=== PATIENT | male | born 1955 | race Caucasian/White ===

== ENCOUNTER 2022-11-11 08:07 | Outpatient (CLI) | payer BC, SELFPAY ==
--- NOTE | 2022-11-11 09:07 | ECG_ITS ---
Measurements Intervals [place] Rate: 54 P: 49 MO: 148 QRS: -11 QRSD: 105 T: 8 QT: 403 QTc: 382 Interpretive Statements SINUS BRADYCARDIA NONSPECIFIC T-WAVE ABNORMALITY ABNORMAL ECG NO PREVIOUS ECG AVAILABLE FOR COMPARISON Electronically Signed On 11-11-2022 10:28:59 CDT by Ravin Carey M.D.
[2022-11-11 10:10] LABS: Hemoglobin A1C 5.7 % (<5.7)
== END 2022-11-11 08:08 | disposition home or self-care (01) ==
LOC: ANHSURGERY 08:16
PROVIDERS: PCP Physician Assistant Medical; Visit Provider Urology
DX: N52.9 Male erectile dysfunction, unspecified (principal); I10 Essential (primary) hypertension; Z01.818 Encounter for other preprocedural examination; R94.31 Abnormal electrocardiogram [ECG] [EKG]
CPT/HCPCS: 36415; 83036; 87086; 93005

== ENCOUNTER 2022-12-04 00:33 | Day surgery (SDC) | payer MEDICARE, BC, SELFPAY ==
--- NOTE | 2022-11-11 08:46 | PC.NURSE ---
Report to the Outpatient Waiting Room, entrance under the green pavilion located off [facility], at time _1000 on date __12/04/22 . Planned Procedure Time: __1200 . Time changes happen often and if your time is changed the preop area will call you the afternoon before. - You and your visitor will be asked to self-screen and do not enter if you have any COVID symptoms. - A mask is optional within the hospital at this time. Patients may have clear liquids (water, carbonated beverages, clear teas, apple juice) until 3 hours prior to surgery with a maximum of 20 ounces. - No food from midnight until time of surgery - Infants may have breast milk until 4 hours before surgery, infant formula 6 hours prior to surgery. - Children will be allowed to drink immediately following surgery. If applicable, please bring a bottle or sippy cup to assist with drinking. Juice, water, soda, and popsicles are readily available. For infants on formula, please bring formula the day of surgery. Pacifiers are allowed. Take the following medications with a SIP of water the morning of surgery: ___BREZTRI INHALER DO NOT STOP ANY OF YOUR OTHER PRESCRIPTION MEDICATIONS PRIOR TO SURGERY ?EXCEPT THE FOLLOWING Medications to discontinue per physician __ALL VITAMINS AND SUPPLEMENTS 3 DAYS PRE OP.LAST DOSE 11/30/22 Please no make-up, nail liberian, hairspray, perfume, deodorant, or body powder the day of surgery. No jewelry (including any body piercings) or valuables the day of surgery, leave them at home. Please take a shower or bath the night before, or the morning of, surgery with an antibacterial soap. Wear comfortable, loose fitting clothing. Children are encouraged to wear pajamas. - Jewelry must be removed prior to entering the operating room. Rings and piercings that are not removed may be cut off. - The hospital will not accept responsibility for valuables. - Please leave all valuables, including medications, at home the day of surgery. If you are going home after surgery, a licensed garbage truck driver must drive you home. - NO public transportation without another adult if you receive anesthesia. - We recommend that an adult stay with you for 24 hours following discharge. - We also recommend that you do not drive, make important decision, drink alcoholic beverages, or take any drugs that were not prescribed by your health care provider for at least 24 hours after your discharge time. For Pediatric surgeries, we recommend two adults accompany the child home. Follow any additional instructions given to you from your surgeon. If you or anyone in your household have experienced Covid symptoms in the past week, please notify your surgeon or the nurse liaison at the phone number below for possible testing. VERBAL AND WRITTEN instructions given to ____PATIENT and asked if any additional questions and then verbalized understanding. Patient advised to call surgeon office or pre surgery nurse liaison [phone] if any additional questions.
[2022-11-11 09:07] VITALS: BP 110/77; PULSE 66; RESP 18; TEMP 36.8; O2SAT 98; BMI 26.2
[2022-12-04] VITALS (17 sets, daily range): BP systolic 101–138; BP diastolic 64–95; PULSE 58–80; RESP 12–20; TEMP 35.8–37.1; O2SAT 95–100
--- NOTE | 2022-12-04 09:26 | P.PNAN_ITS ---
Anes - Initial Pre Proc Eval Procedure: Operation Date: 12/04/22 12:00 Proposed Procedures p Insertion Inflatable Penile Prosthesis - Win Gonzales MD Date/Time: 12/04/22 09:26 Surgeon: Win Gonzales MD Pre Op Diagnosis: ED Patient Data Age: 67 Gender: M Height: 1.85 m Weight: 90.3 kg Last Vital Signs Temp 36.8 C 11/11/22 09:07 Pulse 66 11/11/22 09:07 Resp 18 11/11/22 09:07 BP 110/77 11/11/22 09:07 Pulse Ox 98 11/11/22 09:07 O2 Del Method Room Air 11/11/22 09:07 Allergies Allergy/AdvReac Type Severity Reaction Status Date / Time No Known Allergies Allergy Verified 12/04/22 18:15 Home Medications Medication Instructions Recorded Confirmed Type cetirizine 10 mg tablet (Zyrtec) 10 mg PO DAILY allergy symptoms 04/05/22 12/04/22 Rx #30 tabs tadalafil 20 mg tablet (Cialis) 20 mg PO DAILY PRN sexual activity 04/05/22 12/04/22 Rx #30 tabs alpha lipoic acid 100 mg capsule 100 mg PO DAILY 11/11/22 12/04/22 History budesonide 160 mcg-glycopyr 9 2 inh inhalation DAILY 11/11/22 12/04/22 History mcg-formot 4.8 mcg/actuation HFA inhaler (Breztri Aerosphere) cholecalciferol (vitamin D3) 125 125 mcg PO DAILY 11/11/22 12/04/22 History mcg (5,000 unit) tablet fluticasone propionate 50 2 spray intranasal BID 11/11/22 12/04/22 History mcg/actuation nasal spray,suspension (Flonase Allergy Relief) ginkgo biloba 40 mg tablet 40 mg PO DAILY 11/11/22 12/04/22 History grape seed extract 60 mg capsule 60 mg PO EVERY OTHER DAY 11/11/22 12/04/22 History lisinopril 20 mg tablet 20 mg PO HS 11/11/22 12/04/22 History magnesium 250 mg tablet 250 mg PO HS 11/11/22 12/04/22 History multivitamin 1 tablet PO DAILY 11/11/22 12/04/22 History omega-3 fatty acids 1,000 mg PO DAILY 11/11/22 12/04/22 History sulfamethoxazole 800 1 tablet PO Q12H #14 tabs 12/05/22 Rx mg-trimethoprim 160 mg tablet (Bactrim DS) Patient hx anesthesia problems: none Family hx anesthesia problems: none Results Review: All pre-operative results and documents have been reviewed as part of the pre- operative evaluation. [facility] Past Medical History Medical History Asthma HTN (hypertension) Hyperlipidemia Surgical History Surgical History No pertinent past surgical history Family History Family History Mother No problems noted. Father No problems noted. Sibling History of hip replacement Social History Social History (Updated 04/05/22 @ 09:39 by Daija Smith MA) Smoking packs per day: 1 Smoking cigarettes per day: 20.0 Years smoked: 30 Smoking pack-years: 30.00 Smoking status: Former smoker Tobacco type: cigarettes Smoking end date: 09/05/06 Alcohol intake: current Drinks per week: 7 Alcohol use details: BEER Substance use: never Substance use type: does not use Lack of Transportation: No Lack of Food: Never True Current Housing: I Have Housing Concerned About Future Housing: No Difficulty Paying Gas/Electric Bills: No Difficulty Paying for Meds: No Currently Unemployed: No Education: Trade/Vocational Certificate Difficulty w/ Childcare or Family Care: No Living arrangements: with family Occupation/Education: occupation 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 Informed Consent: The patient's anesthetic plan and its attendant risks and benefits were discussed with the patient/family/POA. Questions were solicited and answers provided to the satisfaction of the patient/family/POA.
[2022-12-04] MEDS: VANCOMYCIN 1,250 MG/NS 250 ML BAG 166.67 MG IVPB (11:00)
[2022-12-04] MEDS: GENTAMICIN SULFATE INJ 450 MG in DEXTROSE 5% 100 ML 100 MG IVPB (11:00)
[2022-12-04] MEDS: LACTATED RINGERS 1,000 ML 30 ML IV CONT ×2 (11:00→15:22)
[2022-12-04] MEDS: LIDOCAINE HCL 1% LOCAL INJ 20 ML VIAL INFILTRATE (11:57)
[2022-12-04] MEDS: BUPivacaine HCL 0.25% PF 30 ML VIAL INFILTRATE (11:58)
[2022-12-04] MEDS: ceFAZolin SODIUM 1 GM VIAL (12:02)
--- NOTE | 2022-12-04 12:14 | WPDHPUPDATE1 ---
History and Physical Update Update Date/Time: 12/04/22 12:14 History and Physical has been reviewed, including an updated exam of the patient. There are NO changes in the patient's condition. Risks, benefits, and alternatives have been discussed and questions answered. Patient agrees to proceed with procedure.
--- NOTE | 2022-12-04 13:12 | SUR.OPER ---
Dr. Gonzales called to room to inspect rash like leslons prior to prepping. Dr. Gonzales instructed staff to proceed with planned surgery
--- NOTE | 2022-12-04 15:23 | P.OP_ITS ---
Procedure Note - Detailed Date of Procedure 12/04/22 Pre-op Diagnosis ED Peyronie's disease Post-op Diagnosis Same Procedure Performed 1. Insertion of 3-piece inflatable penile prosthesis. 2. Penile modelling to correct Peyronie's disease 3. Artificial erection using pharmacological agent Surgeon Win Gonzales MD Anesthesia General Description of Procedure DESCRIPTION OF OPERATION Informed consent obtained, patient taken to the operating room and given preoperative IV antibiotics with vancomycin and gentamicin. Additionally the patient has been taking oral levofloxacin and done a 3-day wash with Hibiclens. The patient was shaved. He was then prepped with Betadine scrub and paint followed by ChloraPrep. Sterile drapes were placed. We again prepped with ChloraPrep. A 16-Irish Roy catheter was inserted with return of clear urine. We then performed a pharmacologically induced erection with dilute lidocaine. The patient had approximately 75? of dorsal and 30? of right curvature with full tumescence. There was a palpable plaque noted at the area of maximal curvature. We then made a penoscrotal 3 cm longitudinal incision. We dissected bluntly down to identify the corporal bodies taking great care not to injure the urethra. Stay sutures of 2-0 PDS were placed in the corporal body. We sharply opened the corpora. We then serially dilated up to a 14 Sanders dilator which allowed for dilation of the corpora at the area of curvature. We then measured the corpora. Measurements were 10 cm proximally and 14 cm distally. We irrigated and there was no injury. We then performed an identical procedure on the contralateral side. Measurements were 10.5 cm proximal,13.5 cm distal. Dilators were placed into the corpora bilaterally confirming that there was no crossover. We elected to place an AMS CX device 21 cm + 3 cm of rear tip extenders. We again irrigated the corporal bodies. We then inserted the prosthesis. We inflated using a surrogate reservoir and the device sat nicely with tips in the mid glans, with persistent dorsal curvature of approximately 45?. We then performed penile modeling placing rubber shots over the tubing to the pump and performing ventral manipulation of the shaft for 90seconds x2, taking great care not to injure the fossa navicularis. At this point the patient had less than 15? of curvature in a direction. We then deflated. We then closed the pre-placed 2-0 PDS sutures. We again inflated using the surrogate reservoir with an excellent cosmetic result in minimal residual dorsal curvature. We then made a left lower quadrant incision for approximately 2 cm. We bluntly dissected down to the external oblique fascia. The fascia was opened. We then the rectus muscle and created a space superiorly in the sub rectus. We emptied the bladder prior to our incision. We then irrigated copiously. We pre- placed 0 Vicryl sutures. We placed the reservoir in the sub rectus space. We fill it with 100 mL and there was no back pressure. We then left 90 mL in the reservoir. Our pre-placed external oblique fascia sutures were closed. We then made a subdartos pouch in the midline for the pump placement. It sat nicely in the inferior scrotum. We then closed the hiatus with 3-0 Vicryl suture. The tubing was then brought up to the abdominal incision. Using the quick connect device, we connected the pump to the reservoir. We then cycled the device again and it functioned nicely. We then removed the stay sutures through the glans. We then again irrigated copiously. We closed the scrotal incision with a transverse followed by longitudinal 3-0 Vicryl sutures and then 3-0 Monocryl skin closure. The left lower quadrant incision was closed with 2-0 Vicryl to Anel's, 3-0 Vicryl deep dermal layer and a 4-0 Monocryl subcuticular closure. Glue was placed over all incisions. A compressive dressing was placed. Patient was awakened and taken to recovery room in stable condition. Complications No immediate complications Condition Stable Disposition PACU
[2022-12-04] MEDS: fentaNYL CITRATE INJ (*CRX) 100 MCG/2 ML VIAL 25 MCG IV PUSH ×8 (15:36→16:23)
--- NOTE | 2022-12-04 15:45 | SUR.PHASEI ---
1540 - pt assisted with placement of herminio hearing aids. hearing aids are secured in each ear
[2022-12-04] MEDS: HYDROmorphone HCL INJ (*CRX) 1 MG/ML SYR 0.5 MG IV PUSH (17:22)
--- NOTE | 2022-12-04 17:45 | ADMGEN ---
This patient, Jose Luis Johnson, was admitted to [facility] Surg Room 303-01. Patient/family oriented to hospital policies and general routines including ID bracelet, bed and alarms, visiting hours, pain management, procedures, bathroom and other care routines, personal items, smoking policy, room service/diet, and visiting hours. Information on how to activate the Rapid Response Team has been discussed. Patient/Family are encouraged to report perceived risks to care and to ask questions if they do not understand what they are told or what they should do.
[2022-12-04] MEDS: DEXTROSE 5%/0.45% SOD CHL 1,000 ML 75 ML IV CONT (17:56)
[2022-12-04] MEDS: MORPHINE SULFATE (*CRX) 2 MG/ML INJ IV PUSH ×2 (17:56→23:10)
[2022-12-04] MEDS: DOCUSATE SODIUM 100 MG CAPSULE PO (17:56)
--- NOTE | 2022-12-04 19:12 | PC.NURSE ---
On 12/04/22, the RN (license pending), Lindsey Pereyra, provided care and completed [employer] documentation on this patient. I have reviewed the RN's (license pending) documentation and agree with the findings.
[2022-12-04] MEDS: HYDROcodone/acetaminophen (*CRX) 5-325 MG TABLET 1 TAB PO (20:17)
[2022-12-04] MEDS: MAGNESIUM 13.5 MG TABLET (250 MG MAG GLUCONATE) PO (20:17)
[2022-12-04] MEDS: lisinopriL 20 MG TABLET PO (20:18)
[2022-12-04] MEDS: VANCOMYCIN 1,000 MG/NS 250 ML 1,000 MG/250 ML BAG 250 MG IVPB (23:08)
[2022-12-05 03:20] VITALS: BP 90/64; PULSE 54; RESP 16; TEMP 36.6; O2SAT 96
[2022-12-05] MEDS: HYDROcodone/acetaminophen (*CRX) 5-325 MG TABLET 1 TAB PO ×3 (04:19→15:24)
[2022-12-05 07:20] VITALS: BP 104/65; PULSE 54; RESP 16; TEMP 36.6; O2SAT 99
[2022-12-05] MEDS: DEXTROSE 5%/0.45% SOD CHL 1,000 ML 75 ML IV CONT (08:58)
[2022-12-05] MEDS: MULTIVITAMINS THERAPEUTIC TAB (*BKC) 1 TABLET PO (09:02)
[2022-12-05] MEDS: DOCUSATE SODIUM 100 MG CAPSULE PO (09:02)
[2022-12-05] MEDS: MORPHINE SULFATE (*CRX) 2 MG/ML INJ IV PUSH (09:02)
[2022-12-05] MEDS: LORATADINE 10 MG TABLET PO (09:02)
[2022-12-05] MEDS: ENOXAPARIN 30 MG/0.3 ML SYRINGE SUB-Q (09:02)
--- NOTE | 2022-12-05 10:24 | WPDANESPN ---
Anes - Prog Note Post-Op Date/Time: 12/05/22 10:24 Cardiovascular status: normal Respiratory status: normal Airway patency: baseline Mental status: baseline Post-Op hydration status: normal Vital Signs: Last Vital Signs Temp 36.6 C 12/05/22 07:20 Pulse 54 L 12/05/22 07:20 Resp 16 12/05/22 07:20 BP 104/65 12/05/22 07:20 Pulse Ox 99 12/05/22 07:20 O2 Del Method Room Air 12/04/22 20:00 O2 Flow Rate 8 12/04/22 15:30 Pain Score (VAS): 10 I/O: Intake & Output 12/04/22 12/05/22 12/05/22 23:59 07:59 15:59 Intake Total 400 1250 500 Output Total 200 1650 Balance 200 -400 500 Post-procedural complaints: none Patient Feedback: Patient satisfied with anesthetic care.
[2022-12-05] MEDS: VANCOMYCIN 1,000 MG/NS 250 ML 1,000 MG/250 ML BAG 250 MG IVPB (11:17)
--- NOTE | 2022-12-05 13:03 | WPDUROPN2 ---
Progress Note: A&P Assessment and Plan (1) Erectile dysfunction: Code(s): N52.9 - Male erectile dysfunction, unspecified Status: Acute Assessment and Plan: Dressing Removed. Apply Scrotal Support with penis in upright position. Remove mueller, when patient can urinate and all IV antibiotic doses have been given ok to discharge home. Subjective Subjective Date/Time Seen: 12/05/22 13:03 Post Op day: 1 Interval history: 1. Insertion of 3-piece inflatable penile prosthesis. 2. Penile modelling to correct Peyronie's disease 3. Artificial erection using pharmacological agent Patient is doing well this morning, tolerating diet and activity.. He has mild pain at his incision sites. Review of Systems Cardiovascular: Cardiovascular: Denies chest pain Respiratory: Respiratory: Reports no additional respiratory complaints Gastrointestinal: Gastrointestinal: Denies abdominal pain, Denies nausea and Denies vomiting Genitourinary: Genitourinary: Denies hematuria, Reports genital pain, Denies dysuria, Denies flank pain, Reports penile discharge, Reports scrotal swelling, Denies testicular pain, Denies urinary frequency, Denies urinary hesitancy, Denies urinary incontinence and Denies urinary urgency Exam Const: General: cooperative and comfortable Resp: Effort & Inspection: normal respiratory effort Cardio: Rate: regular rate GI: Inspection: incision (Incision is well approximated, no drainage, redness or tenderness. ) GI Palp: Yes Soft to palpation and No Tenderness to palpation present (GI) : General: Yes no CVA tenderness Penis: Yes normal penis Meatus: meatus normal Scrotum: scrotum normal, ecchymosis, scrotal swelling and other (Incision is well approximated, no drainage, redness or tenderness. ) Urinary Catheter: Urinary Catheter: patent and draining and urine clear Extrem: Right lower extremity: no edema Left lower extremity: no edema Objective Data Vital Signs Vital Signs: Vital Signs - 24 hr 12/04/22 15:22 12/04/22 15:30 12/04/22 15:45 Temperature 97.8 F Pulse Rate 80 75 71 Respiratory Rate 20 20 14 Blood Pressure 130/92 H 129/92 H 101/83 Pulse Oximetry 100 100 97 Oxygen Delivery Simple Face Mask Simple Face Mask Room Air Oxygen Flow Rate 8 8 12/04/22 16:00 12/04/22 16:15 12/04/22 16:30 Temperature Pulse Rate 64 63 68 Respiratory Rate 16 14 20 Blood Pressure 119/81 123/78 126/95 H Pulse Oximetry 98 97 99 Oxygen Delivery Room Air Room Air Room Air Oxygen Flow Rate 12/04/22 16:45 12/04/22 17:00 12/04/22 17:15 Temperature Pulse Rate 72 70 69 Respiratory Rate 14 12 12 Blood Pressure 135/92 H 135/92 H 133/88 Pulse Oximetry 100 96 98 Oxygen Delivery Room Air Room Air Room Air Oxygen Flow Rate 12/04/22 17:30 12/04/22 17:50 12/04/22 18:05 Temperature 97.6 F 98.1 F Pulse Rate 62 80 73 Respiratory Rate 12 16 16 Blood Pressure 117/77 125/73 130/81 Pulse Oximetry 99 97 98 Oxygen Delivery Room Air Oxygen Flow Rate 12/04/22 18:35 12/04/22 18:56 12/04/22 20:00 Temperature 98.6 F Pulse Rate 62 Respiratory Rate 16 Blood Pressure 138/82 Pulse Oximetry 100 Oxygen Delivery Room Air Room Air Oxygen Flow Rate 12/04/22 19:20 12/04/22 23:20 12/05/22 03:20 Temperature 96.4 F L 96.4 F L 97.8 F Pulse Rate 73 58 L 54 L Respiratory Rate 16 18 16 Blood Pressure 137/91 H 111/64 90/64 L Pulse Oximetry 95 97 96 Oxygen Delivery Oxygen Flow Rate 12/05/22 07:20 12/04/22 18:16 Temperature 97.8 F 97.6 F Pulse Rate 54 L 80 Respiratory Rate 16 16 Blood Pressure 104/65 125/73 Pulse Oximetry 99 97 Oxygen Delivery Oxygen Flow Rate Intake/Output Intake/Output: Intake & Output 12/02/22 12/03/22 12/04/22 12/05/22 23:59 23:59 23:59 23:59 Intake Total 400 2000 Output Total 700 1650 Balance -300 350 Meds/Results Medications: Active Medications Generic Name Dose Route Start Last Admin Trade Name Freq PRN Reason Stop Dose Admin Hydrocodone Bitart/Acetaminophen 1 tab 12/04/22 17:35 12/05/22 11:16 Hydrocodone/Acetaminophen (*Crx) 5-325 Mg Tablet PO 1 tab Q4H PRN Administration Pain Rated 1-6 Docusate Sodium 100 mg 12/04/22 17:35 12/05/22 09:02 Docusate Sodium 100 Mg Capsule PO 100 mg BID SAMANTHA Administration Enoxaparin Sodium 30 mg 12/05/22 09:00 12/05/22 09:02 Enoxaparin 30 Mg/0.3 Ml Syringe SUB-Q 30 mg DAILY SAMANTHA Administration Fluticasone Propionate 2 spray 12/04/22 17:35 12/05/22 10:47 Fluticasone Propionate 0.05% Na Spr 16 Gm Btl (*Bkc) NASAL Not Given BID [facility] Fluticasone/Umeclidinium/Vilanterol 1 puff 12/05/22 09:00 12/05/22 07:56 Fluticasone/Umeclidin/Vilanter 100-62.5-25 Mcg Ellipta INHALATION Not Given DAILY [facility] Dextrose/Sodium Chloride 1,000 mls @ 75 mls/hr 12/04/22 17:35 12/05/22 08:58 Dextrose 5% Sodium Chloride 0.45% IV CONT 75 mls/hr .[id number] SAMANTHA Administration Lisinopril 20 mg 12/04/22 21:00 12/04/22 20:18 Lisinopril 20 Mg Tablet PO 20 mg HS SAMANTHA Administration Loratadine 10 mg 12/05/22 09:00 12/05/22 09:02 Loratadine 10 Mg Tablet PO 10 mg DAILY SAMANTHA Administration Magnesium Gluconate 13.5 mg 12/04/22 21:00 12/04/22 20:17 Magnesium 13.5 Mg Tablet (250 Mg Mag Gluconate) PO 13.5 mg HS SAMANTHA Administration Morphine Sulfate 2 mg 12/04/22 17:35 12/05/22 09:02 Morphine Sulfate (*Crx) 2 Mg/Ml Inj IV PUSH 2 mg Q2H PRN Administration Pain Rated 7-10 Multivitamins Therapeutic 1 tablet 12/05/22 09:00 12/05/22 09:02 Multivitamins Therapeutic Tab (*Bkc) PO 1 tablet DAILY SAMANTHA Administration Naloxone HCl 0.1 mg 12/04/22 17:35 Naloxone Hcl 0.4 Mg/Ml Vial IV PUSH Q2M PRN Opiate Reversal
== END 2022-12-05 15:30 | disposition home or self-care (01) ==
LOC: ANHSURGERY 09:58 → ANH3MEDSUR 19:20
PROVIDERS: PCP Physician Assistant Medical; Visit Provider Urology
PROC: (CPT 54360; principal; 2022-12-04 12:00)
DX: N52.9 Male erectile dysfunction, unspecified (principal); N48.6 Induration penis plastica; I10 Essential (primary) hypertension; E78.5 Hyperlipidemia, unspecified; J45.909 Unspecified asthma, uncomplicated; Z79.51 Long term (current) use of inhaled steroids; Z87.891 Personal history of nicotine dependence
CPT/HCPCS: 54360; 54405; 54235; A9270; C1813; J0330; J0690; J1100; J1171; J1580; J1650; J2003; J2250; J2270; J2405; J2704; J3010; J3370; J7120